=== PATIENT | male | born 1990 | race African-American/Black ===

== ENCOUNTER 2018-05-05 11:42 | Emergency (ER) | payer BC ==
[~2018-05-05] VITALS: Ht 190.5 cm; Wt 112.0 kg
[2018-05-05 11:43] VITALS: BP 140/104
[2018-05-05] MEDS ORDERED: NAPROSYN500 MG PO (12:12)
== END 2018-05-05 12:29 | disposition home or self-care (01) ==
LOC: ER 11:42
DX: S76.812A Strain of other specified muscles, fascia and tendons at thigh level, left thigh, initial encounter (principal); X58.XXXA Exposure to other specified factors, initial encounter; Y93.67 Activity, basketball; Y92.89 Other specified places as the place of occurrence of the external cause; Y99.8 Other external cause status